=== PATIENT | male | born 1980 | race Caucasian/White ===

== ENCOUNTER 2023-05-26 06:06 | Emergency (ER) | payer SELFPAY ==
[2023-05-26 06:13] VITALS: BP 129/90; PULSE 77; RESP 16; TEMP 36.8; O2SAT 98; BMI 24.4
[2023-05-26 06:28] VITALS: BP 129/90; PULSE 71; RESP 16; O2SAT 99
[2023-05-26] MEDS: sodium chloride 0.9% 1,000 ML 999 ML IV (06:31)
[2023-05-26 06:35] LABS: Basophils % 0.5 %; Eosinophils # 0.2 10^3/uL (0.0-0.8); Eosinophils % 2.7 %; Hematocrit 41.4 % (42.0-52.0); Hemoglobin 13.9 g/dL (11.7-16.6); Lymphocytes # 2.5 10^3/uL (0.8-4.8); Mean Corpuscular HGB Conc 33.6 g/dL (30.0-36.0); Mean Corpuscular Hemoglobin 30.8 pg (28.0-34.0); Mean Corpuscular Volume 91.6 fl (80-94); Mean Platelet Volume 9.6 fL (7.4-10.4); Monocytes # 0.8 10^3/uL (0.2-0.9); Monocytes % 9.5 %; Neutrophils # 4.55 10^3/uL (1.8-7.7); Neutrophils % 55.9 %; Nucleated Red Blood Cells % 0 %; Platelet Count 290 10^3/cmm (130-400); Red Blood Count 4.52 10^6/uL (4.1-5.3); Red Cell Distribution Width 13.2 % (12.1-15.1); White Blood Count 8.1 10^3/uL (4.0-10.0)
--- NOTE | 2023-05-26 06:43 | ED_ITS ---
HPI - Nausea/Vomiting/Diarrhea General: Chief complaint: Nausea/Vomiting/Diarrhea Stated complaint: n/v/d Time Seen by Provider: 05/26/23 06:14 Source: patient Mode of arrival: ambulatory History of Present Illness: 43-year-old male presents emergency room complaining nausea vomiting diarrhea that began last night. Patient denies any hematochezia melena hematemesis or coffee-ground emesis no dysuria urgency or frequency has not noted a fever. Symptoms began overnight. Patient states that his fianc?e is also here this morning with similar symptoms. States she works at a vet clinic and was exposed to E. coli with an animal she was taking care of. MD elicited complaint: nausea, vomiting and diarrhea Onset (ago): hour(s) Description of vomiting: watery and bilious Description of diarrhea: mucus and watery Associated nausea: Yes Associated abdominal pain: Yes Location of pain: Diffuse Pain consistency: constant Severity: moderate Quality: cramping Exacerbating factors: none Relieving factors: none Associated symtoms: Reports bloating, anorexia, malaise and nausea; Denies anxiety, change in vision, chest pain, cough, diaphoresis, decreased urine output, dizziness, dysuria, fatigue, fecal incontinence, fevers/chills, headache(s), myalgias, numbness, palpitations, rash, short of breath, syncope, tenesmus or weakness Review of Systems Const: Reports: malaise; Denies: fever(s), chills, fatigue or diaphoresis Eyes: Denies: change in vision Card: Denies: chest pain, palpitations or syncope Resp: Denies: dyspnea, productive cough or non-productive cough GI: Reports: abdominal pain, nausea, vomiting, diarrhea, bloating and GI cramping; Denies: hematemesis, coffee ground emesis or fecal incontinence : Denies: dysuria, urinary frequency or urinary urgency Skin/Breast: Denies: rash or pruritus Neuro: Denies: headache(s) or dizziness Psych: Denies: anxiety PFSH ED PFSH: Medical History Cellulitis of left hand Social History Smoking and tobacco status: current every day smoker Physical Exam 2 Const: GENERAL APPEARANCE: cooperative and comfortable ORIENTATION/CONSCIOUSNESS: Yes awake, Yes oriented to person, Yes oriented to place and Yes oriented to time HENMT: COMMON NORMALS: normocephalic, atraumatic and hearing grossly normal bilaterally HEAD & SCALP: normocephalic and atraumatic Resp: COMMON NORMALS: normal respiratory effort, No retractions, No use of accessory muscles and clear to auscultation bilaterally AUSCULTATION: clear to auscultation bilaterally Cardio: COMMON NORMALS: regular rate, regular rhythm and No murmurs present (Cardio) RATE: regular rate RHYTHM: regular rhythm GI: COMMON NORMALS: No hepatosplenomegaly present AUSCULTATION: Yes normoactive bowel sounds PALPATION: Yes Tenderness to palpation present (GI) (Diffuse), No Guarding due to palpation present (GI) and Yes No hepatosplenomegaly present Extremity: COMMON NORMALS: normal to inspection, capillary refill normal, no clubbing, cyanosis or edema, no calf tenderness and no pedal edema Neuro: SENSORIUM/ORIENTATION: Yes oriented to person, Yes oriented to place and Yes oriented to time Skin: COMMON NORMALS: no rashes or lesions noted GENERAL SKIN EXAM: no rashes or lesions noted Course Vital Signs: Vital signs: Vital Signs Temperature 98.3 F 05/26/23 06:13 Pulse Rate 71 05/26/23 06:28 Respiratory Rate 16 05/26/23 06:28 Blood Pressure 129/90 05/26/23 06:28 Pulse Oximetry 99 05/26/23 06:28 MDM - Nausea/Vomiting/Diarrhea Medical Decision Making Patient is improved after fluids. Will discharge home promethazine to use as ne eded clear liquid diet for 24 to 48 hours and advance as tolerated stool cultures pending. If has any worsening or change symptoms recheck. Medical Records I reviewed the patient's medical records. Lab Data I reviewed the patient's lab results. 05/26/23 06:25 05/26/23 06:25 Laboratory Results WBC 8.1 10^3/uL (4.0-10.0) 05/26/23 06:25 RBC 4.52 10^6/uL (4.1-5.3) 05/26/23 06:25 Hgb 13.9 g/dL (11.7-16.6) 05/26/23 06:25 Hct 41.4 % (42.0-52.0) L 05/26/23 06:25 MCV 91.6 fl (80-94) 05/26/23 06:25 MCH 30.8 pg (28.0-34.0) 05/26/23 06:25 MCHC 33.6 g/dL (30.0-36.0) 05/26/23 06:25 RDW 13.2 % (12.1-15.1) 05/26/23 06:25 Plt Count 290 10^3/cmm (130-400) 05/26/23 06:25 MPV 9.6 fL (7.4-10.4) 05/26/23 06:25 Neut % (Auto) 55.9 % 05/26/23 06:25 Lymph % (Auto) 31.0 % 05/26/23 06:25 [place] % (Auto) 9.5 % 05/26/23 06:25 Eos % (Auto) 2.7 % 05/26/23 06:25 Baso % (Auto) 0.5 % 05/26/23 06:25 Neut # (Auto) 4.55 10^3/uL (1.8-7.7) 05/26/23 06:25 Lymph # (Auto) 2.5 10^3/uL (0.8-4.8) 05/26/23 06:25 [place] # (Auto) 0.8 10^3/uL (0.2-0.9) 05/26/23 06:25 Eos # (Auto) 0.2 10^3/uL (0.0-0.8) 05/26/23 06:25 Baso # (Auto) 0.0 10^3/uL (0.0-0.1) 05/26/23 06:25 Nucleated RBC % (auto) 0 % 05/26/23 06:25 Nucleated RBCs # 0.0 /100WBC 05/26/23 06:25 Sodium 137 mmol/L (136-145) 05/26/23 06:25 Potassium 3.3 mmol/L (3.5-5.1) L 05/26/23 06:25 Chloride 104 mmol/L (98-107) 05/26/23 06:25 Carbon Dioxide 20 mmol/L (22-29) L 05/26/23 06:25 Anion Gap 16.3 (5-19) 05/26/23 06:25 BUN 14 mg/dL (6-20) 05/26/23 06:25 Creatinine 0.9 mg/dL (0.7-1.2) 05/26/23 06:25 GFR Calculation 91.3 mL/min (90-130) 05/26/23 06:25 Glucose 103 mg/dL (65-115) 05/26/23 06:25 Calculated Osmolality 285 mOsm/kg (285-295) 05/26/23 06:25 Calcium 8.9 mg/dL (8.5-10.5) 05/26/23 06:25 Total Bilirubin 0.2 mg/dL (0.15-1.2) 05/26/23 06:25 AST 18 U/L (0-40) 05/26/23 06:25 ALT 12 U/L (0-41) 05/26/23 06:25 Alkaline Phosphatase 77 U/L (40-130) 05/26/23 06:25 Total Protein 6.7 g/dL (6.6-8.7) 05/26/23 06:25 Albumin 4.1 g/dL (3.5-5.2) 05/26/23 06:25 Globulin 2.6 g/dL (1.3-4.6) 05/26/23 06:25 Lipase 66 U/L (13-60) H 05/26/23 06:25 Urine Color Yellow (Yellow) 05/26/23 06:32 Urine Appearance Cloudy (CLEAR) A 05/26/23 06:32 Urine pH 7 (5-7) 05/26/23 06:32 Ur Specific [place] 1.020 (1.005-1.030) 05/26/23 06:32 Urine Protein Neg (Negative) 05/26/23 06:32 Urine Glucose (UA) Norm (Normal) 05/26/23 06:32 Urine Ketones Negative (Negative) 05/26/23 06:32 Urine Blood 2+ (Negative) H 05/26/23 06:32 Urine Nitrate Negative (Negative) 05/26/23 06:32 Urine Bilirubin Neg (Negative) 05/26/23 06:32 Urine Urobilinogen Norm mg/dL (Negative) 05/26/23 06:32 Ur Leukocyte Esterase Negative (Negative) 05/26/23 06:32 Urine RBC 0-4 /hpf (0-2) H 05/26/23 06:32 Urine WBC 0-4 /hpf (0-5) H 05/26/23 06:32 Ur Squamous Epith Cells 0-4 /hpf (0-5) H 05/26/23 06:32 Amorphous Sediment 2+ /hpf 05/26/23 06:32 Urine Bacteria Trace /hpf (NONE) 05/26/23 06:32 Urine Mucus 1+ /hpf 05/26/23 06:32 Discharge Plan Discharge Patient Disposition: Home Clinical Impression: Diarrhea Condition: Stable Prescriptions: New promethazine 25 mg tablet 25 mg PO Q6H PRN (Reason: nausea and vomiting) Qty: 20 0RF No Action doxycycline hyclate 100 mg capsule 100 mg PO BID Qty: 20 0RF indomethacin 75 mg capsule, extended release 75 mg PO BID Qty: 14 0RF Discharge Orders: Discharge ED (Routine); Ordered 05/26/23 Ordered By: Edward Taylor Discharge Diet: Clear Liquid Discharge Activity: Increase activity as tolerated Patient Instructions: Opioid Safety, Pain Management Activity Restrictions/Additional Instructions: Clear liquid diet 24 to 48 hours and advance as tolerated. You can use the promethazine as needed for nausea and vomiting. Stool cultures are pending. Stand Alone Forms: Work/School Release Coding Level of Care Code ED Plate Glass Installer Helper for Keri Karimi
[2023-05-26 06:48] LABS: Add Urine Microscopic? YES; Bilirubin Urine Neg (Negative); Blood Urine 2+ (Negative); Glucose Urine UA Norm (Normal); Ketones Urine Negative (Negative); Leukocyte Esterase Urine Negative (Negative); Nitrate Urine Negative (Negative); Protein Urine Neg (Negative); Urine Appearance Cloudy (CLEAR); Urine Color Yellow (Yellow); Urobilinogen Urine Norm (Negative); pH Urine 7 (5-7)
[2023-05-26 06:49] LABS: Alanine Aminotransferase 12 U/L (0-41); Albumin Level 4.1 g/dL (3.5-5.2); Alkaline Phosphatase 77 U/L (40-130); Anion Gap 16.3 (5-19); Aspartate Amino Transferase 18 U/L (0-40); Blood Urea Nitrogen 14 mg/dL (6-20); Calcium 8.9 mg/dL (8.5-10.5); Carbon Dioxide 20 mmol/L (22-29); Chloride 104 mmol/L (98-107); Globulin 2.6 g/dL (1.3-4.6); Glomerular Filtration Rate 91.3 mL/min (90-130); Glucose 103 mg/dL (65-115); Lipase 66 U/L (13-60); Osmolality Calculated 285 mOsm/kg (285-295); Potassium 3.3 mmol/L (3.5-5.1); Sodium 137 mmol/L (136-145); Total Bilirubin 0.2 mg/dL (0.15-1.2); Total Protein 6.7 g/dL (6.6-8.7)
[2023-05-26 07:08] LABS: Add Urine Culture? No; Amorphous Sediment Urine 2+ /hpf; Bacteria Urine TRACE /hpf; Mucus Urine 1+ /hpf; RBC Urine 0-4 /hpf (0-2); Squamous Epithelial Cell Urine 0-4 /hpf (0-5); WBC Urine 0-4 /hpf (0-5)
== END 2023-05-26 09:16 | disposition home or self-care (01) ==
PROVIDERS: Emergency Provider Family Medicine
DX: R19.7 Diarrhea, unspecified (principal); F17.200 Nicotine dependence, unspecified, uncomplicated
CPT/HCPCS: 80053; 81001; 83690; 85025; 87506; 99284; J7030

== ENCOUNTER 2023-09-16 17:59 | Emergency (ER) | payer SELFPAY ==
[2023-09-16 18:11] VITALS: BP 167/110; PULSE 70; RESP 17; TEMP 36.7; O2SAT 99; BMI 20.3
--- NOTE | 2023-09-16 18:55 | CTR_ITS ---
PROCEDURE INFORMATION: Exam: CT Abdomen And Pelvis Without Contrast Exam date and time: 09/16/2023 8:20 PM Age: 43 years old Clinical indication: Nausea and vomiting; Abdominal pain; Prior surgery; Surgery date: 6+ months; Surgery type: Gb; Patient HX: Epigastric pain with n/v. ; Additional info: Epigastric pain, vomiting TECHNIQUE: Imaging protocol: Computed tomography of the abdomen and pelvis without contrast. Radiation optimization: All CT scans at this facility use at least one of these dose optimization techniques: automated exposure control; mA and/or kV adjustment per patient size (includes targeted exams where dose is matched to clinical indication); or iterative reconstruction. REPORTING DATA: Count of CT and Cardiac NM exams in prior 12 months: This patient has received 0 known CTs and 0 known cardiac nuclear medicine studies in the 12 months prior to the current study. COMPARISON: No relevant prior studies available. RADIATION DOSE METRICS: Total DLP (mGy-cm): 325.71 FINDINGS: Liver: Normal. No mass. Gallbladder and bile ducts: The gallbladder has been removed. No biliary ductal dilatation. Pancreas: Normal. No ductal dilation. Spleen: Normal. No splenomegaly. Adrenal glands: Normal. No mass. Kidneys and ureters: Tiny renal stones are present in both kidneys. No hydronephrosis. No ureteral stone is visualized. Stomach and bowel: The stomach and duodenum (up to 3rd segment) are prominently distended. The 3rd portion of duodenum may be compressed against the aorta by the SMA Mild distention of multiple loops of small bowel in the lower abdomen/pelvis is also appreciated. No focal point of obstruction is seen. Air and stool are present in the colon. Appendix: No evidence of appendicitis. Intraperitoneal space: Unremarkable. No free air. No significant fluid collection. Vasculature: Mild atherosclerotic calcific changes are seen in the abdominal aorta. No aneurysm. Lymph nodes: Unremarkable. No enlarged lymph nodes. Urinary bladder: Unremarkable as visualized. Reproductive: Unremarkable as visualized. Bones/joints: Moderate to severe L5-S1 degenerative disc disease changes are noted. Soft tissues: Unremarkable. CT/CT abdomen pelvis wo con [id number] IMPRESSION: 1. 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 2. Nephrolithiasis. No hydronephrosis. 3. Atherosclerosis.
[2023-09-16 18:59] LABS: Basophils % 0.4 %; Eosinophils % 0.1 %; Hematocrit 45.5 % (37-53); Lymphocytes # 1.2 10^3/uL (0.8-4.8); Lymphocytes % 12.8 %; Mean Corpuscular HGB Conc 33.4 g/dL (30-55); Mean Corpuscular Hemoglobin 30.8 pg (27-33); Mean Corpuscular Volume 92.1 fl (82-101); Mean Platelet Volume 9.6 fL (7.4-10.4); Monocytes # 0.5 10^3/uL (0.2-0.9); Monocytes % 5.1 %; Neutrophils # 7.87 10^3/uL (1.8-7.7); Neutrophils % 81.3 %; Nucleated Red Blood Cells % 0 %; Platelet Count 349 10^3/cmm (157-399); Red Blood Count 4.94 10^6/uL (3.85-5.65); Red Cell Distribution Width 12.6 % (12.1-15.1); White Blood Count 9.68 10^3/uL (3.29-11.43)
[2023-09-16 19:05] LABS: Alanine Aminotransferase 16 U/L (0-41); Albumin Level 4.4 g/dL (3.5-5.2); Alkaline Phosphatase 73 U/L (40-130); Anion Gap 15.1 (5-19); Aspartate Amino Transferase 16 U/L (0-40); Blood Urea Nitrogen 16 mg/dL (6-20); Calcium 9.3 mg/dL (8.5-10.5); Carbon Dioxide 28 mmol/L (22-29); Chloride 103 mmol/L (98-107); Globulin 2.8 g/dL (1.3-4.6); Glomerular Filtration Rate 91.3 mL/min (90-130); Glucose 134 mg/dL (65-115); Lipase 36 U/L (13-60); Osmolality Calculated 297 mOsm/kg (285-295); Potassium 4.1 mmol/L (3.5-5.1); Sodium 142 mmol/L (136-145); Total Bilirubin 0.2 mg/dL (0.15-1.2); Total Protein 7.2 g/dL (6.6-8.7)
--- NOTE | 2023-09-16 19:18 | ED_ITS ---
HPI - Abdominal Pain General: Chief Complaint: Abdominal Pain Stated Complaint: abdomen pain, n/v Time Seen by Provider: 09/16/23 18:41 Source: patient History of Present Illness: 43-year-old male complaining of mainly epigastric abdominal pain radiating into his back that started around 10 AM this morning. He has vomited multiple times. No blood in the vomitus. No fever. Some mild upper respiratory symptoms. No diarrhea. No sick contacts. Associated Symptoms: Reports nausea and vomiting; Denies chills, diarrhea, fever(s) and hematochezia Review of Systems Const: Denies: fever(s), chills or body aches Eyes: Denies: change in vision Card: Denies: chest pain or palpitations Resp: Reports: non-productive cough; Denies: dyspnea, productive cough or wheezing GI: Reports: abdominal pain, nausea and vomiting; Denies: diarrhea or hematochezia Skin/Breast: Denies: rash Neuro: Denies: headache(s), weakness in extremities, dizziness or confusion PFSH ED PFSH: Medical History Cellulitis of left hand Social History Smoking and tobacco/nicotine status: current every day tobacco/nicotine user Physical Exam Const: COMMON NORMALS: no acute distress GENERAL APPEARANCE: cooperative; not ill appearing and not frail appearing HENMT: COMMON NORMALS: normocephalic, atraumatic and Normal external nose present HEAD & SCALP: normocephalic and atraumatic FACE & SINUS: normal facial exam and face symmetric NOSE: Normal external nose present Eye: COMMON NORMALS: Equal, round and reactive pupils present and EOMs intact bilaterally PUPIL: Yes Equal, round and reactive pupils present Neck/C-Spine: GENERAL: Yes trachea midline Chest: CHEST: Yes Symmetrical chest wall rise Resp: COMMON NORMALS: normal respiratory effort, No retractions, No use of accessory muscles and clear to auscultation bilaterally AUSCULTATION: clear to auscultation bilaterally Cardio: COMMON NORMALS: regular rate and regular rhythm RATE: regular rate RHYTHM: regular rhythm GI: COMMON NORMALS: Normal to inspection, nondistended, normoactive bowel sounds present Extremity: COMMON NORMALS: no pedal edema Neuro: WATSON COMA SCALE: document GCS findings Watson coma scale eye opening: Spontaneous [place] coma scale verbal response: Orientated Watson coma scale motor response: Obey commands Watson coma scale total score: 15 SENSORY EXAM: Yes extremities (intact) Psych: COMMON NORMALS: speech normal SPEECH: Yes normal speech Skin: COMMON NORMALS: no rashes or lesions noted GENERAL SKIN EXAM: no ra shes or lesions noted Course Vital Signs: Vital signs: Vital Signs Temperature 98.1 F 09/16/23 18:11 Pulse Rate 70 09/16/23 18:11 Respiratory Rate 17 09/16/23 18:11 Blood Pressure 167/110 09/16/23 18:11 Pulse Oximetry 99 09/16/23 18:11 Oxygen Delivery Me thod Room Air 09/16/23 18:11 MDM - Abdominal Pain Medical Decision Making Patient has not vomited since here. IV was unable to be established, likely due to venous scarring. CBC is normal. BMP is not remarkable. Liver enzymes are not remarkable. Lipase is normal. Noncontrast CT shows mild enteritis. There is also dilatation of the stomach down to the third part of the duodenum possibly due to narrowing from the SMA against the aorta. We will ask surgery to lend an opinion on this as an outpatient. No other acute findings. He will be allowed discharged with symptomatic treatment. Lab Data 09/16/23 18:42 09/16/23 18:42 Labs/Radiology: Radiology Impressions Abdomen/Pelvis CT 09/16/23 18:55 IMPRESSION: 1. 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 2. Nephrolithiasis. No hydronephrosis. 3. Atherosclerosis. Laboratory Results WBC 9.68 10^3/uL (3.29-11.43) 09/16/23 18:42 RBC 4.94 10^6/uL (3.85-5.65) 09/16/23 18:42 Hgb 15.20 g/dL (11.27-16.99) 09/16/23 18:42 Hct 45.5 % (37-53) 09/16/23 18:42 MCV 92.1 fl (82-101) 09/16/23 18:42 MCH 30.8 pg (27-33) 09/16/23 18:42 MCHC 33.4 g/dL (30-55) 09/16/23 18:42 RDW 12.6 % (12.1-15.1) 09/16/23 18:42 Plt Count 349 10^3/cmm (157-399) 09/16/23 18:42 MPV 9.6 fL (7.4-10.4) 09/16/23 18:42 Neut % (Auto) 81.3 % 09/16/23 18:42 Lymph % (Auto) 12.8 % 09/16/23 18:42 [place] % (Auto) 5.1 % 09/16/23 18:42 Eos % (Auto) 0.1 % 09/16/23 18:42 Baso % (Auto) 0.4 % 09/16/23 18:42 Neut # (Auto) 7.87 10^3/uL (1.8-7.7) H 09/16/23 18:42 Lymph # (Auto) 1.2 10^3/uL (0.8-4.8) 09/16/23 18:42 [place] # (Auto) 0.5 10^3/uL (0.2-0.9) 09/16/23 18:42 Eos # (Auto) 0.0 10^3/uL (0.0-0.8) 09/16/23 18:42 Baso # (Auto) 0.0 10^3/uL (0.0-0.1) 09/16/23 18:42 Nucleated RBC % (auto) 0 % 09/16/23 18:42 Nucleated RBCs # 0.0 /100WBC 09/16/23 18:42 Sodium 142 mmol/L (136-145) 09/16/23 18:42 Potassium 4.1 mmol/L (3.5-5.1) 09/16/23 18:42 Chloride 103 mmol/L (98-107) 09/16/23 18:42 Carbon Dioxide 28 mmol/L (22-29) 09/16/23 18:42 Anion Gap 15.1 (5-19) 09/16/23 18:42 BUN 16 mg/dL (6-20) 09/16/23 18:42 Creatinine 0.9 mg/dL (0.7-1.2) 09/16/23 18:42 GFR Calculation 91.3 mL/min (90-130) 09/16/23 18:42 Glucose 134 mg/dL (65-115) H 09/16/23 18:42 Calculated Osmolality 297 mOsm/kg (285-295) H 09/16/23 18:42 Calcium 9.3 mg/dL (8.5-10.5) 09/16/23 18:42 Total Bilirubin 0.2 mg/dL (0.15-1.2) 09/16/23 18:42 AST 16 U/L (0-40) 09/16/23 18:42 ALT 16 U/L (0-41) 09/16/23 18:42 Alkaline Phosphatase 73 U/L (40-130) 09/16/23 18:42 C-Reactive Protein 3.0 mg/L (0.0-4.9) 09/16/23 18:42 Total Protein 7.2 g/dL (6.6-8.7) 09/16/23 18:42 Albumin 4.4 g/dL (3.5-5.2) 09/16/23 18:42 Globulin 2.8 g/dL (1.3-4.6) 09/16/23 18:42 Lipase 36 U/L (13-60) 09/16/23 18:42 All radiology interpretation(s) finalized by discharge Discharge Plan Discharge Patient Disposition: Home Clinical Impression: Gastroenteritis Condition: Stable Prescriptions: New ondansetron 4 mg film 4 mg PO DAILY PRN (Reason: nausea and vomiting) Qty: 10 0RF Discharge Orders: Discharge ED (Routine); Ordered 09/16/23 Ordered By: Saleem George Patient Instructions: Gastroenteritis (ED), Opioid Safety, Pain Management Activity Restrictions/Additional Instructions: Clear liquid diet for the next 36 hours. You may add in solid food as tolerated following that if no vomiting. Take medication prescribed every 4 hours while awake for the first 24 hours, then as needed to follow. Return for fever greater than 100, worsening pain, vomiting liquids or medications despite treatment, other concerning symptoms. We have referred you to the surgery clinic as an outpatient based on the enlarged stomach seen on CT scan that is a chronic finding. Coding Level of Care Code ED Licensed Marriage And Family Therapist for Keri Karimi
[2023-09-16] MEDS: ketorolac 30 mg/mL INJ 15 MG IVP (20:21)
[2023-09-16] MEDS: morphine 4 mg/mL SDV 1 mL IVP (20:21)
[2023-09-16] MEDS: ondansetron 2 mg/ML SDV 2 mL 4 MG IVP (20:21)
--- NOTE | 2023-09-16 20:40 | PC.NURSE ---
I.V. was attempted several times without success. Pt. is angry after being stuck with needle several times. Dr. George was okay with CT scan without contrast at this time.
[2023-09-16 22:09] VITALS: BP 166/100; PULSE 94; RESP 18; O2SAT 98
--- NOTE | 2023-09-19 07:07 | DCPLANNER ---
Message sent to Gen Surg for Consult: Possible SMA syndrome.
== END 2023-09-16 22:10 | disposition home or self-care (01) ==
PROVIDERS: Nurse Practitioner Family; Emergency Provider Emergency Medicine
DX: K52.9 Noninfective gastroenteritis and colitis, unspecified (principal); Z72.0 Tobacco use
CPT/HCPCS: 36415; 74176; 80053; 83690; 85025; 86140; 96374; 96375; 99285; J1885; J2270; J2405